=== PATIENT | female | born 1990 | race Caucasian/White ===

== ENCOUNTER 2019-02-03 00:39 | Emergency (ER) | payer OTHER ==
[~2019-02-03] VITALS: Ht 175.3 cm; Wt 124.3 kg
[~2019-02-03 00:39] MED LIST: CEPH-443 PO
[2019-02-03 00:44] VITALS: Ht 175.3 cm; Wt 124.3 kg
[2019-02-03] MEDS ORDERED: ACETAMINOPHEN 325 MG TAB PO STA (01:33)
[2019-02-03] MEDS ORDERED: SOD CHLORIDE 0.9% 1,000 ML IV STA (01:33)
[2019-02-03 04:43] VITALS: BP 138/87; PULSE 93; RESP 16
== END 2019-02-03 04:43 | disposition home or self-care (01) ==
LOC: FTE 00:39
DX: O20.9 Hemorrhage in early pregnancy, unspecified (principal); Z3A.12 12 weeks gestation of pregnancy
CPT/HCPCS: 36415; 76801; 80053; 81001; 84702; 85025; 86900; 86901; 96360; J7030; Z7502